=== PATIENT | male | born 1945 | race Caucasian/White ===

== ENCOUNTER → 2016-07-16 | Day surgery (SDC) | payer MEDICARE ==
--- NOTE | 2016-07-12 02:31 | CR ---
DATE OF CONSULTATION: 07/11/2016 Preoperative clearance on Catrachito Rivero seen today, on 07/11/2016. Patient is going to be undergoing cataract surgery of the right eye with intraocular lens implant by Dr. White on 07/16/2016 at [facility]. I was asked to see him for preoperative clearance. HISTORY OF PRESENT ILLNESS: This patient is 71 years of age. He was seen for preoperative clearance in 2011 for left eye cataract surgery, which he did very well with, so I anticipate he will do well with this one, as well. He has been doing good up until recently where he started have some increased anxiety from his 's illness. However, that has been doing better with the sertraline. Patient is diabetic, and his last A1c was 7.8, which is actually very good compared to what it normally had been prior to that, which was running in 8's or higher. He is on insulin. He does take NovoLog as well before meals, and he was instructed to reduce his Levemir dose to half the dose in the evening prior to surgery. He has not had any chest pain, chest pressure, palpitations, or shortness of breath. He does not have any history of myocardial infarction. He does have a history of first-degree atrioventricular (AV) seen on EKG, unchanged from 2009. He does have chronic kidney disease and diabetic nephropathy, diabetic retinopathy, and diabetic neuropathy. He is able to exercise, though, at over 4 metabolic equivalents of task (METs) without any chest pain or chest pressure. PAST MEDICAL HISTORY: Is significant for chronic kidney disease stage III; diabetic nephropathy, neuropathy, and retinopathy; posttraumatic stress disorder; hypertensive cardiovascular disease; renal lithiasis; BPH; erectile dysfunction. Had a history of breast biopsy in 08/2010 because of gynecomastia. PAST SURGICAL HISTORY: Colonoscopy, laser treatment surgery. He had cataract surgery of the left eye in 07/2011, and then he had previous surgery in 04/2010 of the left eye. FAMILY HISTORY: Three sisters alive, in good health. Father is due to diabetes complications and coronary artery disease complications. MEDICATIONS: That he takes include the following, and these are a list of his medications recently updated today: - amlodipine 5 mg a day - aspirin 81 mg a day - atenolol 25 mg twice a day - finasteride 5 mg a day - gabapentin 300 mg one in the morning, one in the evening - Levemir 50 units daily - Levothroid 100 mcg daily - magnesium oxide 400 mg once a day - multivitamin a day - NovoLog FlexPen per sliding scale - pravastatin 40 mg a day - prazosin 1 mg daily - saxagliptin 2.5 mg twice a day - sertraline 100 mg a day - terazosin 1 mg daily - terbinafine as needed - vitamin D 1000 units daily - zolpidem 5 mg nightly as needed for insomnia ALLERGIES: Does not have any known allergies. SOCIAL HISTORY: Negative for any chronic alcohol use. No history of tobacco use. No history of hepatitis, tuberculosis, HIV exposure, sexually transmitted disease, or intravenous (IV) drug use. He is retired, 80% disabled. He was a former smoker, quit 1975. No recent travel outside [place]. REVIEW OF SYSTEMS: Has not had any increased weight loss or weight gain. No fevers, chills, or night sweats. Eyes: See review of systems, Dr. Matthewss, for the review of the eyes. Cardiovascular (CV): Does have hypertension, first-degree AV block. No history of myocardial infarction. No orthopnea, paroxysmal nocturnal dyspnea. Respiratory: No productive cough, fever, chills, or night sweats. No hemoptysis. No history of pneumonia. No history of chronic obstructive pulmonary disease (COPD). Gastrointestinal (GI): Denies any nausea, vomiting, melanotic stools, hematochezia, hematemesis, change in bowel habits. Genitourinary: Denies any dysuria or frequency. Positive for chronic kidney disease stage III. Neurologic: Does have diabetic neuropathy. No history of cerebrovascular accident (CVA), transient ischemic attack (TIA), seizure disorder, syncopal episode. Psychiatric: Positive for depression and posttraumatic stress disorder. No history of bipolar disorder. PHYSICAL EXAM: Reveals a 71-year-old male who does not appear be in acute distress. Blood pressure (BP) is 120/68, pulse 74. Weight is 189. Oxygen saturation 96% on room air. Body mass index (BMI) 27.9. Head is normocephalic, atraumatic. Sclerae are nonicteric. Extraocular muscle movements are intact. Throat is without any erythema or exudate. Neck is without any jugular venous distention (JVD), thyromegaly, adenopathy, or carotid bruits. Heart: S1, S2, without any new murmurs, rubs or gallops, or heaves or thrills. Lung sounds are clear to auscultation without any wheezing, rales, or rhonchi. Abdomen is soft, nontender. Bowel sounds present in all four quadrants. Extremities: Without any significant pretibial, ankle, or pedal edema. Upper extremities without any evidence of any bruising or lesions. Neurological exam: Patient is alert to person, place, and time. No evidence of any tremor. He walks without an assistive device and has no evidence of ataxia with his gait. Normal gait. Reflexes are 2+ bilaterally in the upper and lower extremities. No evidence of any hypo- or hyperreflexia. LABORATORIES: I did not do any labs on him. [facility] His hemoglobin A1c at that time was 7.8. His creatinine was 2.0, which is normal for him. He runs between 1.8 and 2.0 with his creatinine at all times. His EKG was done and compared to 2009, 2011, 2013. He shows borderline first-degree AV block, and he does have nonspecific ST changes but does not have any evidence of left ventricular hypertrophy (LVH), has poor R wave progression and, compared to previous EKG, no changes. IMPRESSION: On this patient is a 71-year-old male to undergo right eye cataract surgery with intraocular lens implant by Dr. White 07/16/2016 at [facility]. Patient is medically optimized to undergo this procedure. Diabetes. Was told to take his Levemir 25 units before dinner instead of 50 units, so he is going to cut his dose in half. He will take his amlodipine and atenolol the morning of surgery for his hypertension. As far as his hypothyroidism, he will continue to take his Levothroid the morning of surgery. Rest of his medications will be held, and he can resume those postoperatively. If there are any questions, please do not hesitate to contact me.
[~2016-07-16] VITALS: Ht 175.3 cm; Wt 83.9 kg
[~2016-07-16] MED LIST: /GLIP10TAB; ACETAMINOPHEN 325 MG TAB PO PRN; AMBI10TA PO; ASPI1TAB PO; ATEN25TA PO; AcetaZOLAMIDE 500 MG ER CAP PO ONE; BABY81CH; BSS with VANC/TOB/EPI for EYE CASES IR ONE; CATA0.1T; CEFUROXIME 1MG/0.1ML INTRACAMERAL INJ As Ordered ONE; CYCLOPENTOLATE 2% OPHTH SOLN As Ordered ONE; CYCLOPENTOLATE 2% OPHTH SOLN OD ONE; GABA300T; GLUC1000; HEALON DUET (HEALON 10MG/ML 0.55ML & HEALON ENDOCOAT 30MG/ML 0.85ML) As Ordered ONE; HYDR25TA6; JANUVIA; KAYEPOW; KETOROLAC 0.5% OPHTH SOLN OD ONE; LATA5OPD OS; LEVE1INJ5 SC; LIDOCAINE 1% SDV 5 ML VIAL As Ordered ONE; LIDOCAINE 4% INJ 5 ML AMP OU ONE; LISI40TA; MAGN400C2 PO; MIDAZOLAM INJ 2 MG/2 ML VIAL (J2250) As Ordered ONE; MULT1TAB9 PO; NOVOINJ3 SC; NS 1,000 ML IV SCH; OFLOXACIN 0.3 % (OCUFLOX) OPTH SOL 5ML As Ordered ONE; OFLOXACIN 0.3 % (OCUFLOX) OPTH SOL 5ML OD ONE; ONGL10TA3 PO; PHENYLEPHRINE 2.5% OPHTH SOL 2ML As Ordered ONE; PHENYLEPHRINE 2.5% OPHTH SOL 2ML OD ONE; POVIDONE-IODINE 5% OPHTH PREP SOL 30ML As Ordered ONE; PRAV40TA2 PO; PROPARACAINE 0.5% OPHTH SOL 15ML OD PRN; PROS5TAB; SERT100T; SLOWTAB; TERA1CAP3; TERA1CAP46 PO; TRIMETHOBENZAMIDE 300 MG CAP PO PRN; TROPICAMIDE 1% OPHTH SOLN 2 ML As Ordered ONE; TROPICAMIDE 1% OPHTH SOLN 2 ML OD ONE; fentaNYL 100 MCG/2 ML INJECTION (J3010) As Ordered ONE; hydrALAZINE INJ 20 MG/ML VIAL As Ordered ONE
[2016-07-16 11:05] VITALS: BP 166/77
--- NOTE | 2016-08-21 17:22 | RO ---
DATE OF PROCEDURE: 07/16/2016 PREOPERATIVE DIAGNOSES: Cataract right eye and glaucoma right eye. 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 PROCEDURE: Phacoemulsification with intraocular lens implantation, power PCB00, 21 diopters, and also endocyclophotocoagulation with placement of the iStent right eye. SURGEON: Geraldine White MD PROBATION SUPERVISOR: None. ANESTHESIA: COMPLICATIONS: None. PROCEDURE IN DETAIL: Patient was brought to the operating room, laid in supine position, and a lid speculum was placed. Sideport incision was made, and EndoCoat was injected into the anterior chamber. This was followed by a temporal clear corneal incision and capsulorrhexis, followed by hydrodissection. Phacoemulsification was carried out in a [id number] method, following which the intraocular lens was placed under Healon. Healon was then placed in the ciliary sulcus to visualize the ciliary processes and, with the help of the video probe and under video guidance, endocyclophotocoagulation was done at 0.25 milliwatts, 280 degrees. Healon was then placed into the anterior chamber to visualize inferonasal trabecular meshwork. With the patient's head rotated away from the surgeon, under high magnification with the help of the goniolens, the iStent was placed. Excess viscoelastic was then aspirated. Wound hydrated, lid speculum removed, and patient returned to the recovery room in stable condition.
== END | disposition home or self-care (01) ==
LOC: M SDC 07:06
PROVIDERS: ATTEND Ophthalmology
DX: H26.9 Unspecified cataract (principal); H40.9 Unspecified glaucoma; I12.9 Hypertensive chronic kidney disease with stage 1 through stage 4 chronic kidney disease, or unspecified chronic kidney disease; E11.22 Type 2 diabetes mellitus with diabetic chronic kidney disease; E11.319 Type 2 diabetes mellitus with unspecified diabetic retinopathy without macular edema; E11.40 Type 2 diabetes mellitus with diabetic neuropathy, unspecified; E78.00 Pure hypercholesterolemia, unspecified; N18.3 Chronic kidney disease, stage 3 (moderate); F43.10 Post-traumatic stress disorder, unspecified; N20.0 Calculus of kidney; N52.9 Male erectile dysfunction, unspecified; N40.0 Benign prostatic hyperplasia without lower urinary tract symptoms; Z79.899 Other long term (current) drug therapy; Z79.4 Long term (current) use of insulin; Z79.82 Long term (current) use of aspirin; Z85.3 Personal history of malignant neoplasm of breast
CPT/HCPCS: 66711; 66984; C1783; J2250; J3010; V2632

== ENCOUNTER → 2017-01-22 | Outpatient (REF) | payer MEDICARE ==
[~2017-01-22] MED LIST changes: -ACETAMINOPHEN 325 MG TAB PO PRN; -AcetaZOLAMIDE 500 MG ER CAP PO ONE; -BSS with VANC/TOB/EPI for EYE CASES IR ONE; -CEFUROXIME 1MG/0.1ML INTRACAMERAL INJ As Ordered ONE; -CYCLOPENTOLATE 2% OPHTH SOLN As Ordered ONE; -CYCLOPENTOLATE 2% OPHTH SOLN OD ONE; -HEALON DUET (HEALON 10MG/ML 0.55ML & HEALON ENDOCOAT 30MG/ML 0.85ML) As Ordered ONE; -KETOROLAC 0.5% OPHTH SOLN OD ONE; -LIDOCAINE 1% SDV 5 ML VIAL As Ordered ONE; -LIDOCAINE 4% INJ 5 ML AMP OU ONE; -MIDAZOLAM INJ 2 MG/2 ML VIAL (J2250) As Ordered ONE; -NS 1,000 ML IV SCH; -OFLOXACIN 0.3 % (OCUFLOX) OPTH SOL 5ML As Ordered ONE; -OFLOXACIN 0.3 % (OCUFLOX) OPTH SOL 5ML OD ONE; -PHENYLEPHRINE 2.5% OPHTH SOL 2ML As Ordered ONE; -PHENYLEPHRINE 2.5% OPHTH SOL 2ML OD ONE; -POVIDONE-IODINE 5% OPHTH PREP SOL 30ML As Ordered ONE; -PROPARACAINE 0.5% OPHTH SOL 15ML OD PRN; -TRIMETHOBENZAMIDE 300 MG CAP PO PRN; -TROPICAMIDE 1% OPHTH SOLN 2 ML As Ordered ONE; -TROPICAMIDE 1% OPHTH SOLN 2 ML OD ONE; -fentaNYL 100 MCG/2 ML INJECTION (J3010) As Ordered ONE; -hydrALAZINE INJ 20 MG/ML VIAL As Ordered ONE
== END ==
LOC: M LAB REF 16:34
PROVIDERS: ATTEND Internal Medicine
DX: E83.52 Hypercalcemia (principal); Z23 Encounter for immunization

== ENCOUNTER 2018-02-13 13:31 | Emergency (ER) | payer MEDICARE ==
[2018-02-13] MEDS: KETOROLAC 60 MG/2 ML VIAL (J1885) IM (14:45)
[2018-02-13] MEDS ORDERED: KETOROLAC 30 MG/ML VIAL (J1885) As Ordered (14:58)
[2018-02-13] MEDS: diazePAM 10 MG TAB PO (15:01)
== END 2018-02-13 17:30 | disposition home or self-care (01) ==
LOC: M ED 13:31
DX: S39.012A Strain of muscle, fascia and tendon of lower back, initial encounter (principal); E11.9 Type 2 diabetes mellitus without complications; I10 Essential (primary) hypertension
CPT/HCPCS: J1885

== ENCOUNTER 2018-09-02 10:06 | Day surgery (SDC) | payer OTHER ==
[~2018-09-02] VITALS: Ht 175.3 cm; Wt 83.5 kg
[~2018-09-02 10:06] MED LIST changes: -ASPI1TAB PO; +ASPI81TA26 PO; +FERR325T3 PO; +FINA5TAB2 PO; +FLOM0.4C39 PO; +LATA0.0013 OS; -LATA5OPD OS; +LEVO100T5 PO; +LIDOCAINE 2% INJ 100 MG/5 ML SDV (FOR ANES.) As Ordered ONE; +MULTCAP PO; +NAPR-837 PO; +NEUR600T PO; +NS 1,000 ML IV ONE; +PRAZ1CAP PO; +PRES10CA2 PO; +PROPOFOL 200 MG/20 ML VIAL As Ordered ONE; +SERT-138 PO; +SOMA350T PO; +TERA1CAP3 PO; -TERA1CAP46 PO; +XALA0.007 OU
[2018-09-02] MEDS ORDERED: PROPOFOL 200 MG/20 ML VIAL As Ordered ONE (12:20)
--- NOTE | 2018-09-02 12:39 | ROOR ---
Patient Name: Catrachito Rivero Procedure Date: 09/02/2018 12:00 PM Date of : 1945 Age: 73 Room: [facility] Gender: Male Note Status: Finalized Procedure: Colonoscopy Indications: High risk colon cancer surveillance: Personal history of colonic polyps Providers: Diogo Nieto MD Referring MD: [facility] [place], Admin. Requesting Provider: Medicines: Monitored Anesthesia Care Complications: No immediate complications. Procedure: Pre-Anesthesia Assessment: - Prior to the procedure, a History and Physical was performed, and patient medications and allergies were reviewed. The patient is competent. The risks and benefits of the procedure and the sedation options and risks were discussed with the patient. All questions were answered and informed consent was obtained. Patient identification and proposed procedure were verified by the physician, the nurse and the anesthesiologist in the endoscopy suite. Mental Status Examination: alert and oriented. Airway Examination: normal oropharyngeal airway and neck mobility. Respiratory Examination: clear to auscultation. CV Examination: normal. Prophylactic Antibiotics: The patient does not require prophylactic antibiotics. Prior Anticoagulants: The patient has taken no previous anticoagulant or antiplatelet agents. ASA Grade Assessment: III - A patient with severe systemic disease. After reviewing the risks and benefits, the patient was deemed in satisfactory condition to undergo the procedure. The anesthesia plan was to use monitored anesthesia care (MAC). Immediately prior to administration of medications, the patient was re-assessed for adequacy to receive sedatives. The heart rate, respiratory rate, oxygen saturations, blood pressure, adequacy of pulmonary ventilation, and response to care were monitored throughout the procedure. The physical status of the patient was re-assessed after the procedure. The Colonoscope was introduced through the anus and advanced to the cecum, identified by appendiceal orifice and ileocecal valve. The colonoscopy was performed without difficulty. The patient tolerated the procedure well. The quality of the bowel preparation was good. Findings: The perianal and digital rectal examinations were normal. A 5 mm polyp was found in the rectum. The polyp was flat. The polyp was removed with a cold snare. Resection and retrieval were complete. Estimated blood loss was minimal. The entire examined colon appeared normal on direct and retroflexion views. Impression: - One 5 mm polyp in the rectum, removed with a cold snare. Resected and retrieved. - The entire examined colon is normal on direct and retroflexion views. Recommendation: - Discharge patient to home (ambulatory). - Repeat colonoscopy in 5 years for surveillance. - Telephone my office for pathology results in 1 week. Diogo Nieto MD Diogo Nieto MD 09/02/2018 12:39:05 PM Electronically signed by Diogo Nieto MD Number of Addenda: 0 Note Initiated On: 09/02/2018 12:00 PM Estimated Blood Loss: Estimated blood loss was minimal.
[2018-09-02 12:50] VITALS: BP 125/66
== END 2018-09-02 13:08 | disposition home or self-care (01) ==
LOC: M OPP 10:06
PROVIDERS: ATTEND Surgery
DX: K62.1 Rectal polyp (principal); Z86.010 Personal history of colon polyps

== ENCOUNTER 2019-08-07 14:39 | Emergency (ER) | payer MEDICARE ==
[~2019-08-07] VITALS: Ht 175.3 cm; Wt 85.0 kg
[~2019-08-07 14:39] MED LIST changes: -LIDOCAINE 2% INJ 100 MG/5 ML SDV (FOR ANES.) As Ordered ONE; -NS 1,000 ML IV ONE; -PROPOFOL 200 MG/20 ML VIAL As Ordered ONE
[2019-08-07] MEDS ORDERED: diazePAM 10 MG/2 ML INJ (J3360) IM ONE (15:00)
[2019-08-07] MEDS ORDERED: KETOROLAC 30 MG/ML VIAL (J1885) IV ONE (15:00)
[2019-08-07] MEDS ORDERED: KETOROLAC 60 MG/2 ML VIAL (J1885) IM ONE (15:15)
[2019-08-07] MEDS ORDERED: CYCL10TA PO (15:40)
[2019-08-07 16:00] VITALS: BP 179/83
[2019-08-07] MEDS ORDERED: METAL LOCK LOOP XX ONE (16:38)
[2019-08-07] MEDS ORDERED: SERT-138 PO (17:34)
[2019-08-07] MEDS ORDERED: AMMO12LO TOP (19:00)
[2019-08-07] MEDS ORDERED: PRAZ2CAP40 PO (19:00)
[2019-08-07] MEDS ORDERED: NESI25TA PO (19:00)
[2019-08-07] MEDS ORDERED: CRES40TA PO (19:00)
[2019-08-07] MEDS ORDERED: SODI1POW59 PO (19:00)
[2019-08-07] MEDS ORDERED: REFR0.5D8 OU (19:00)
[2019-08-07] MEDS ORDERED: FERR32TA PO (19:00)
[2019-08-07] MEDS ORDERED: METO1TAB32 PO (19:00)
[2019-08-07] MEDS ORDERED: GENT0.1C2 TOP (19:00)
[2019-08-07] MEDS ORDERED: GABA-843 PO (19:00)
[2019-08-07] MEDS ORDERED: VITA1CHW7 PO (19:00)
== END 2019-08-07 16:46 | disposition home or self-care (01) ==
LOC: M ED 14:39
DX: S39.012A Strain of muscle, fascia and tendon of lower back, initial encounter (principal); X58.XXXA Exposure to other specified factors, initial encounter; Y92.89 Other specified places as the place of occurrence of the external cause; E11.9 Type 2 diabetes mellitus without complications; I10 Essential (primary) hypertension; E07.9 Disorder of thyroid, unspecified; N40.0 Benign prostatic hyperplasia without lower urinary tract symptoms; Z79.899 Other long term (current) drug therapy; Z79.890 Hormone replacement therapy; Z79.4 Long term (current) use of insulin